=== PATIENT | female | born 1965 | race Hispanic/Latino ===

== ENCOUNTER 2019-02-08 13:25 | Emergency (ER) | payer BC, SELFPAY ==
--- OUTSIDE RECORDS SUMMARY | 2019-02-08 14:56 | XMS REPORT ---
:1965 [facility] Address [address] [place] [address] Care Team Providers Name Role Phone Unavailable Unavailable Unavailable Problems This patient has no known problems. Allergies, Adverse Reactions, Alerts This patient has no known allergies or adverse reactions. Medications This patient has no known medications.
[2019-02-08] MEDS ORDERED: IBUPROFEN 400 MG TAB ONE (15:07)
[2019-02-08] MEDS ORDERED: HYDROCODONE/APAP 7.5/325 MG TAB ONE (15:07)
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
[2019-02-08 20:18] LABS: Urine Blood NEGATIVE (NEG); Urine Glucose NEGATIVE (NEG); Urine Protein NEGATIVE (NEG); Urine Specific Gravity 1.015 (1.005-1.030); Urine pH 7.5 (5.0-7.0)
== END 2019-02-08 16:59 | disposition home or self-care (01) ==
LOC: ER 13:25
DX: R51 Headache (principal); S16.1XXA Strain of muscle, fascia and tendon at neck level, initial encounter; V49.9XXA Car occupant (driver) (passenger) injured in unspecified traffic accident, initial encounter; N39.0 Urinary tract infection, site not specified
CPT/HCPCS: 70450; 72125; 81003; 81025; 99284

== ENCOUNTER 2020-02-08 22:00 | Emergency (ER) | payer BC, SELFPAY ==
--- OUTSIDE RECORDS SUMMARY | 2020-02-08 22:01 | XMS REPORT ---
:1965 [facility] Address [address] [place] [address] Care Team Providers Name Role Phone Unavailable Unavailable Unavailable Problems This patient has no known problems. Allergies, Adverse Reactions, Alerts This patient has no known allergies or adverse reactions. Medications This patient has no known medications.
[2020-02-08] MEDS ORDERED: cloNIDine HCL 0.1 MG TAB ONE (22:30)
[2020-02-08] MEDS ORDERED: LORAZEPAM 0.5 MG TABLET ONE (22:31)
--- NOTE | 2020-02-08 23:27 | ER ---
Nurse's Notes [facility] Name: Shanell Coleman Age: 55 yrs Sex: Female : 1965 Arrival Date: 02/08/2020 Time: 22:01 Bed 15 Private MD: Diagnosis: Essential (primary) hypertension;Acute stress reaction Presentation: 02/07 22:19 Chief complaint: Patient states: Pt reports she started having a headache at 2 PM. Pt ea reports taking two Advil without relief, reports BP 158/98 at home. Denies chest pain. Coronavirus screen: Patient denies fever greater than 100.4F, cough, shortness of breath, or difficulty breathing. Ebola Screen: No symptoms or risks identified at this time. Initial Sepsis Screen: Does the patient meet any 2 criteria? No. Patient's initial sepsis screen is negative. Does the patient have a suspected source of infection? No. Patient's initial sepsis screen is negative. Risk Assessment: Do you want to hurt yourself or someone else? Patient reports no desire to harm self or others. 22:19 Acuity: VALERIO 4 ea 22:19 Method Of Arrival: Ambulatory ea Triage Assessment: 22:31 General: Appears in no apparent distress. Behavior is anxious. Pain: Denies pain. ea Historical: - Allergies: 22:30 No Known Allergies; ea - PMHx: 22:30 Hypertension; ea - PSHx: 22:30 None; ea - Immunization history:: Adult Immunizations up to date. - Social history:: Smoking status: Patient denies any tobacco usage or history of. Screenin:18 Abuse screen: Denies threats or abuse. Nutritional screening: No deficits noted. ea Tuberculosis screening: No symptoms or risk factors identified. Fall Risk None identified. Assessment: 22:31 General: Appears in no apparent distress. Behavior is anxious. Pain: Denies pain. ea Neuro: Level of Consciousness is awake, alert, obeys commands, Oriented to person, place, time. Respiratory: Airway is patent Respiratory effort is even, unlabored, Respiratory pattern is regular, symmetrical. Derm: Skin is pink, warm \T\ dry. 23:04 Reassessment: Patient and/or family updated on plan of care and expected duration. Pain ea level reassessed. Patient is alert, oriented x 3, equal unlabored respirations, skin warm/dry/pink. 23:41 Reassessment: Patient and/or family updated on plan of care and expected duration. Pain ea level reassessed. Patient is alert, oriented x 3, equal unlabored respirations, skin warm/dry/pink. Discharge instruction given to patient, verbalized the understanding of instruction. Pt left ED ambulatory tolerating well. Vital Signs: 22:19 BP 149 / 78; Pulse 78; Resp 18; Temp 97.8; Pulse Ox 99% ; Weight 80.74 kg; Height 4 ft. ea 11 in. (149.86 cm); 23:03 BP 116 / 78; Pulse 72; Resp 18; Pulse Ox 100% ; ea 22:19 Body Mass Index 35.95 (80.74 kg, 149.86 cm) ea ED Course: 22:01 Patient arrived in ED. ds1 22:03 [facility] King [facility]C [facility] snw 22:03 Saran London MD is Attending Physician. snw 22:19 Patient has correct armband on for positive identification. Bed in low position. Call ea light in reach. 22:19 Arm band placed on right wrist. Patient placed in an exam room, on a stretcher, on ea pulse oximetry. 22:29 Triage completed. ea 22:52 Idalia Kramer, RN is Primary Nurse. ea 23:42 No provider procedures requiring assistance completed. Patient did not have IV access ea during this emergency room visit. Administered Medications: 22:33 Drug: Ativan 0.5 mg Route: PO; ea 23:04 Follow up: Response: No adverse reaction ea 22:33 Drug: cloNIDine 0.1 mg Route: PO; ea 23:04 Follow up: Response: No adverse reaction ea Outcome: 23:27 Discharge ordered by . snw 23:42 Discharged to home ambulatory, with family. ea 23:42 Condition: stable 23:42 Discharge instructions given to patient, Instructed on discharge instructions, follow up and referral plans. Demonstrated understanding of instructions, follow-up care. 23:43 Patient left the ED. ea Signatures: Cata King FNP-C GENERAL LABORER-Karw Feli Gonzalez ds1 Idalia Kramer, RN RN ea
--- NOTE | 2020-02-08 23:28 | EDPHYS ---
Physician Documentation [facility] Name: Shanell Coleman Age: 55 yrs Sex: Female : 1965 Arrival Date: 02/08/2020 Time: 22:01 Bed 15 Private MD: ED Physician Saran London HPI: 02/07 22:16 This 55 yrs old Female presents to ER via Unassigned with complaints of High snw Blood Pressure. 22:16 The patient has elevated blood pressure and discovered this at home, with a home snw device. Onset: The symptoms/episode began/occurred today. Modifying factors: The symptoms are aggravated by anxiety. Associated signs and symptoms: The patient has no apparent associated signs or symptoms. Severity of symptoms: At its worst the blood pressure was 168 mm Hg. It is unknown whether or not the patient has had similar symptoms in the past. The patient has been recently seen by a physician: with different complaint(s), and apparently was diagnosed with UTI, was given a prescription for antibiotics, Taking augmentin, back pain gone. Pt takes Losartan for HTN, usually once daily. Pt took additional dose at 2000 for increased BP all day. . denies current KIM, back pain, chest pain. Historical: - Allergies: 22:30 No Known Allergies; ea - PMHx: 22:30 Hypertension; ea - PSHx: 22:30 None; ea - Immunization history:: Adult Immunizations up to date. - Social history:: Smoking status: Patient denies any tobacco usage or history of. ROS: 22:15 Constitutional: Negative for fever, chills, and weight loss, Eyes: Negative for injury, snw pain, redness, and discharge, ENT: Negative for injury, pain, and discharge, Neck: Negative for injury, pain, and swelling, Cardiovascular: Negative for chest pain, palpitations, and edema, Respiratory: Negative for shortness of breath, cough, wheezing, and pleuritic chest pain, Abdomen/GI: Negative for abdominal pain, nausea, vomiting, diarrhea, and constipation, Back: Negative for injury and pain, : Negative for injury, bleeding, discharge, and swelling, MS/Extremity: Negative for injury and deformity, Skin: Negative for injury, rash, and discoloration. 22:15 Neuro: Positive for weakness, generalized. 22:15 Psych: Positive for anxiety. Exam: 22:15 Head/Face: Normocephalic, atraumatic. Eyes: Pupils equal round and reactive to light, snw extra-ocular motions intact. Lids and lashes normal. Conjunctiva and sclera are non-icteric and not injected. Cornea within normal limits. Periorbital areas with no swelling, redness, or edema. ENT: Nares patent. No nasal discharge, no septal abnormalities noted. Tympanic membranes are normal and external auditory canals are clear. Oropharynx with no redness, swelling, or masses, exudates, or evidence of obstruction, uvula midline. Mucous membranes moist. Neck: Trachea midline, no thyromegaly or masses palpated, and no cervical lymphadenopathy. Supple, full range of motion without nuchal rigidity, or vertebral point tenderness. No Meningismus. Chest/axilla: Normal chest wall appearance and motion. Nontender with no deformity. No lesions are appreciated. Cardiovascular: Regular rate and rhythm with a normal S1 and S2. No gallops, murmurs, or rubs. Normal PMI, no JVD. No pulse deficits. Respiratory: Lungs have equal breath sounds bilaterally, clear to auscultation and percussion. No rales, rhonchi or wheezes noted. No increased work of breathing, no retractions or nasal flaring. Abdomen/GI: Soft, non-tender, with normal bowel sounds. No distension or tympany. No guarding or rebound. No evidence of tenderness throughout. Back: No spinal tenderness. No costovertebral tenderness. Full range of motion. Skin: Warm, dry with normal turgor. Normal color with no rashes, no lesions, and no evidence of cellulitis. MS/ Extremity: Pulses equal, no cyanosis. Neurovascular intact. Full, normal range of motion. Neuro: Awake and alert, GCS 15, oriented to person, place, time, and situation. Cranial nerves II-XII grossly intact. Motor strength 5/5 in all extremities. Sensory grossly intact. Cerebellar exam normal. Normal gait. Psych: Awake, alert, with orientation to person, place and time. Behavior, mood, and affect are within normal limits. 22:15 Constitutional: The patient appears alert, awake, anxious. Vital Signs: 22:19 BP 149 / 78; Pulse 78; Resp 18; Temp 97.8; Pulse Ox 99% ; Weight 80.74 kg; Height 4 ft. ea 11 in. (149.86 cm); 23:03 BP 116 / 78; Pulse 72; Resp 18; Pulse Ox 100% ; ea 22:19 Body Mass Index 35.95 (80.74 kg, 149.86 cm) ea MDM: 22:04 Patient medically screened. snw 23:27 Data reviewed: vital signs, nurses notes. Data interpreted: Pulse oximetry: on room air snw is 100 %. Interpretation: normal. Counseling: I had a detailed discussion with the patient and/or guardian regarding: the historical points, exam findings, and any diagnostic results supporting the discharge/admit diagnosis, the need for outpatient follow up, for definitive care, to return to the emergency department if symptoms worsen or persist or if there are any questions or concerns that arise at home. Special discussion: I have referred the patient to see his PCP for further evaluation of high blood pressure. Based on the history and exam findings, there is no indication for further emergent testing or inpatient evaluation. I discussed with the patient/guardian the need to see the primary care provider for further evaluation of the symptoms. 02/07 22:44 Order name: Recheck B/P: at 2300; Complete Time: 23:04 snw Administered Medications: 22:33 Drug: Ativan 0.5 mg Route: PO; ea 23:04 Follow up: Response: No adverse reaction ea 22:33 Drug: cloNIDine 0.1 mg Route: PO; ea 23:04 Follow up: Response: No adverse reaction ea Disposition: 02/08 05:01 Co-signature as Attending Physician, Saran London MD I agree with the assessment and tw4 plan of care. Disposition: 02/08/20 23:27 Discharged to Home. Impression: Essential (primary) hypertension, Acute stress reaction. - Condition is Stable. - Discharge Instructions: Panic Attacks, Hypertension, DASH Eating Plan, Rehydration, Adult, Managing Your Hypertension, Form - Blood Pressure Record Sheet. - Medication Reconciliation Form, Thank You Letter, Antibiotic Education, Prescription Opioid Use form. - Follow up: Emergency Department; When: As needed; Reason: Worsening of condition. Follow up: Private Physician; When: 1 week; Reason: Recheck today's complaints, Continuance of care, Re-evaluation by your physician. Signatures: Cata King FNP-C [employer]CH[employer] Idalia Kramer, RN RN Saran Larios MD MD tw4 Corrections: (The following items were deleted from the chart) 02/07 23:43 23:27 02/08/2020 23:27 Discharged to Home. Impression: Essential (primary) ea hypertension; Acute stress reaction. Condition is Stable. Forms are Medication Reconciliation Form, Thank You Letter, Antibiotic Education, Prescription Opioid Use. Follow up: Emergency Department; When: As needed; Reason: Worsening of condition. Follow up: Private Physician; When: 1 week; Reason: Recheck today's complaints, Continuance of care, Re-evaluation by your physician. snw
[2020-02-08 23:49] VITALS: TEMP 97.8
[2020-02-08 23:51] VITALS: BP 116/78; O2SAT 100
== END 2020-02-08 23:43 | disposition home or self-care (01) ==
LOC: ER 22:00
DX: I10 Essential (primary) hypertension (principal); F43.0 Acute stress reaction; Z79.899 Other long term (current) drug therapy
CPT/HCPCS: 99283